=== PATIENT | female | born 1950 | race Caucasian/White ===

== ENCOUNTER → 2020-07-28 | Outpatient (CLI) | payer OTHER | LOC: HEART 5 11:19 | DX: R06.02 Shortness of breath (principal) | CPT/HCPCS: 94060; 94729 ==

== ENCOUNTER → 2020-11-30 | Outpatient (CLI) | payer OTHER | LOC: KOH-I 11:15 | DX: E05.00 Thyrotoxicosis with diffuse goiter without thyrotoxic crisis or storm (principal) | CPT/HCPCS: 76536 ==

== ENCOUNTER → 2021-07-29 | Outpatient (CLI) | payer OTHER | LOC: KOH-I 13:28 | DX: Z87.891 Personal history of nicotine dependence (principal) | CPT/HCPCS: 71271 ==